=== PATIENT | male | born 1950 | race Hispanic/Latino ===

== ENCOUNTER 2017-12-03 10:45 | Day surgery (SDC) | payer MEDICARE, BC ==
[2017-12-02 12:38] VITALS: BMI 26.0
[2017-12-03] MEDS ORDERED: Propofol 10 mg/ml Inj (20 ML) ONE (11:42)
[2017-12-03] MEDS ORDERED: Succinylcholine 200 mg/10 ml Inj IV ONE (11:43)
[2017-12-03] MEDS ORDERED: Sodium Chloride 0.9% 1,000 ML IV SCH (12:15)
[2017-12-03 12:42] VITALS: O2SAT 99
[2017-12-03 13:14] VITALS: RESP 16
[2017-12-03 13:58] VITALS: BP 173/81; PULSE 64; TEMP 97.6
== END 2017-12-03 14:05 | disposition short-term general hospital (02) ==
LOC: SDS 10:45
PROVIDERS: ATTEND Psychiatry & Neurology Addiction Medicine
DX: F45.1 Undifferentiated somatoform disorder (principal); M54.5 Low back pain; Z53.8 Procedure and treatment not carried out for other reasons
CPT/HCPCS: J0330; J2704; J7040

== ENCOUNTER 2017-12-03 14:08 | Emergency (ER) | payer MEDICARE, BC ==
[2017-12-03 14:08] VITALS: BMI 26.0
[2017-12-03 14:15] VITALS: O2SAT 99
--- NOTE | 2017-12-03 15:05 | ED PDOC ---
Arrival/HPI - General Time Seen by Provider: 12/03/17 14:32 Historian: Patient - History of Present Illness Narrative History of Present Illness (Text): 12/03/17 14:55 A 67 year old male, whose past medical history includes anxiety and depression, presents to the emergency department complaining of tremors and anxiety. Patient reports he had ECT procedure performed today. During procedure, patient began experiencing symptoms and began hyperventilating. Pulse Oxygen was 99%. Patient was sent to ER by psychiatrist for evaluation. PMD: Dr. Zaid Pittman Past Medical History - Provider Review Nursing Documentation Reviewed: Yes - Cardiac Hx Pacemaker: No - Neurological Hx Paralysis: No - Hematological/Oncological Hx Blood Transfusions: No - Musculoskeletal/Rheumatological Hx Musculoskeletal Disorders: No - Psychiatric Hx Emotional Abuse: No Hx Physical Abuse: No Hx Substance Use: No - Anesthesia Hx Anesthesia Reactions: No Hx Malignant Hyperthermia: No - Suicidal Assessment Feels Threatened In Home Enviroment: No Family/Social History - Physician Review Nursing Documentation Reviewed: Yes Family/Social History: No Known Family HX Hx Alcohol Use: No Hx Substance Use: No Allergies/Home Meds Allergies/Adverse Reactions: Allergies diazepam [From Valium] Allergy (Verified 12/03/17 14:15) SHAKING Home Medications: Home Meds Medication Instructions Recorded Confirmed Aspirin [Ecotrin] 81 mg PO DAILY 12/02/17 12/03/17 Cholecalciferol [Vitamin D 1000 IU] 2,000 iu PO BID 12/02/17 12/03/17 FLUoxetine [Prozac] 10 mg PO DAILY 12/02/17 12/03/17 Finasteride [Propecia] 5 mg PO DAILY 12/02/17 12/03/17 Folic Acid [FA-8] 0.8 mg PO DAILY 12/02/17 12/03/17 Magnesium [Magnesium] 400 mg PO DAILY 12/02/17 12/03/17 Ramipril [Altace] 5 mg PO BID 12/02/17 12/03/17 Silodosin [Rapaflo] 4 mg PO BID 12/02/17 12/03/17 Thiothixene [Navane] 1 mg PO BID 12/02/17 12/03/17 clonazePAM [Klonopin] 0.5 mg PO BID 12/02/17 12/03/17 Review of Systems - Physician Review All systems were reviewed & negative as marked: Yes - Review of Systems Constitutional: absent: Fevers, Night Sweats Respiratory: absent: SOB, Cough Cardiovascular: absent: Chest Pain Gastrointestinal: absent: Abdominal Pain, Nausea, Vomiting Neurological: Other (tremors) Psychiatric: Anxiety Physical Exam Vital Signs Reviewed: Yes Vital Signs Pulse Resp BP Pulse Ox 12/03/17 16:08 65 18 152/86 H 99 12/03/17 14:14 67 29 H 149/93 H 99 Temperature: Afebrile Blood Pressure: Normal Pulse: Regular Respiratory Rate: Normal Appearance: Positive for: Other (patient is anxious) Pain Distress: None Mental Status: Positive for: Alert and Oriented X 3 - Systems Exam Head: Present: Atraumatic, Normocephalic Pupils: Present: PERRL Extroacular Muscles: Present: EOMI Conjunctiva: Present: Normal Mouth: Present: Moist Mucous Membranes Neck: Present: Normal Range of Motion Respiratory/Chest: Present: Clear to Auscultation, Good Air Exchange. No: Respiratory Distress, Accessory Muscle Use Cardiovascular: Present: Regular Rate and Rhythm, Normal S1, S2. No: Murmurs Abdomen: Present: Normal Bowel Sounds. No: Tenderness, Distention, Peritoneal Signs Back: Present: Normal Inspection Upper Extremity: Present: Normal Inspection. No: Cyanosis, Edema Lower Extremity: Present: Normal Inspection. No: Edema Neurological: Present: GCS=15, CN II-XII Intact, Speech Normal Skin: Present: Warm, Dry, Normal Color. No: Rashes Psychiatric: Present: Alert, Oriented x 3, Normal Insight, Normal Concentration , Anxious Medical Decision Making ED Course and Treatment: 12/03/17 15:00 Impression: 67 year old male with anxiety and tremors after ECT procedure today. No acute findings on physical examination, except patient appears anxious. Plan: -- Reassess and disposition Progress Notes: 12/03/17 15:[address] Pittman. Patient being treated for anxiety and depression. He was recently discharged from [place]. Dr. Pittman scheduled additional ECT for Thursday. Requesting klonopin 2mg stat and then discharge 12/03/17 16:19 Patient feeling better. Will dc. No homicidal or suicidal ideation. - Medication Orders Current Medication Orders: Discontinued Medications Clonazepam (Klonopin) 2 mg PO STAT STA PRN Reason: Protocol Stop: 12/03/17 15:17 Last Admin: 12/03/17 15:31 Dose: 2 mg - Scribe Statement The provider has reviewed the documentation as recorded by the Teresa Santos Provider Teresa Attestation: All medical record entries made by the Isabelibyaa were at my direction and personally dictated by me. I have reviewed the chart and agree that the record accurately reflects my personal performance of the history, physical exam, medical decision making, and the department course for this patient. I have also personally directed, reviewed, and agree with the discharge instructions and disposition. Disposition/Present on Arrival - Present on Arrival Any Indicators Present on Arrival: No - Disposition Have Diagnosis and Disposition been Completed?: Yes Diagnosis: Anxiety Disposition: HOME/ ROUTINE Disposition Time: 16:20 Patient Plan: Discharge Patient Problems: Current Active Problems Problem Status Onset Anxiety Acute Condition: GOOD Discharge Instructions (ExitCare): Anxiety, Adult (DC) Additional Instructions: Follow-up with Dr. Pittman within 2 days. Return to ED if condition worsens. Take all your medication. You have ECT scheduled for Thursday Referrals: Zaid Pittman MD [Primary Care Provider] - Follow up with primary
[2017-12-03 16:09] VITALS: RESP 18
[2017-12-03 17:54] VITALS: BP 148/79; PULSE 69
== END 2017-12-03 17:56 | disposition home or self-care (01) ==
LOC: ED 14:08
DX: F41.9 Anxiety disorder, unspecified (principal)